=== PATIENT | female | born 1995 | race Caucasian/White ===

== ENCOUNTER 2021-06-04 09:53 | Day surgery (SDC) | payer OTHER ==
[~2021-06-04] VITALS: Ht 162.6 cm; Wt 111.4 kg
[2021-06-04] VITALS (11 sets, daily range): BP systolic 93–123; BP diastolic 58–78
[2021-06-04] MEDS ORDERED: SEVOFLURANE (ULTANE) 15 ML INHAL SOLN ONE ×2 (10:10→12:09)
[2021-06-04] MEDS ORDERED: proPOfol 200 MG/20 ML (DIPRIVAN) VIAL IV ONE (10:10)
[2021-06-04] MEDS ORDERED: LIDOCAINE PF 2% 5 ML (XYLOCAINE) VIAL ONE (10:10)
[2021-06-04] MEDS ORDERED: fentaNYL INJ 100 MCG/2 ML AMP ONE (10:10)
[2021-06-04] MEDS ORDERED: ONDANSETRON 4 MG/2 ML (SDV) Z0FRAN ONE (10:10)
[2021-06-04] MEDS ORDERED: MIDAZOLAM 2 MG/2 ML (VERSED) VIAL ONE (10:11)
[2021-06-04] MEDS ORDERED: ceFAZolin INJECTION 1,000 MG VIAL IV ONE (10:30)
[2021-06-04] MEDS: LACTATED RINGERS 1,000 ML IV PRN ×2 (10:48→12:19)
[2021-06-04 10:49] LABS: BASOPHILS % (AUTO) 0 % (0-10); EOSINOPHILS # (AUTO) 0.1 10^3/uL (0.0-0.3); EOSINOPHILS % (AUTO) 1 % (0-10); HEMATOCRIT 34 % (35-52); HEMOGLOBIN 11.7 g/dL (11.5-16.0); LYMPHOCYTES # (AUTO) 1.7 10^3/uL (1.0-4.0); LYMPHOCYTES % (AUTO) 17 % (12-44); MEAN CORPUSCULAR HEMOGLOBIN 33 pg (25-34); MEAN CORPUSCULAR HGB CONC 35 g/dL (32-36); MEAN CORPUSCULAR VOLUME 94 fL (80-99); MEAN PLATELET VOLUME 8.7 fL (9.0-12.2); MONOCYTES # (AUTO) 0.8 10^3/uL (0.0-1.0); MONOCYTES % (AUTO) 8 % (0-12); NEUTROPHILS # (AUTO) 7.7 10^3/uL (1.8-7.8); NEUTROPHILS % (AUTO) 73 % (42-75); PLATELET COUNT 190 10^3/uL (130-400); WHITE BLOOD COUNT 10.5 10^3/uL (4.3-11.0)
[2021-06-04] MEDS ORDERED: CETI10TA49 PO (10:55)
[2021-06-04] MEDS ORDERED: PREN-142 PO (10:55)
--- NOTE | 2021-06-04 11:35 | Progress Note-Pre Operative ---
Pre-Operative Progress Note H&P Reviewed The H&P was reviewed, patient examined and no changes noted. Date Seen by Provider: Jun 04, 2021 Time Seen by Provider: 11:35 Date H&P Reviewed: Jun 04, 2021 Time H&P Reviewed: 11:35 Pre-Operative Diagnosis: 15-week demise/missed JIL BURKETT MD Jun 04, 2021 11:35
--- NOTE | 2021-06-04 11:36 | Progress Note-Post Operative ---
Post-Operative Progess Note Surgeon (s)/Laborer Adjustable Steel Joist (s) Surgeon JIL BURKETT MD Laborer Adjustable Steel Joist: None Pre-Operative Diagnosis 15-week demise/missed Post-Operative Diagnosis Same Procedure & Operative Findings Date of Procedure 06/04/21 Procedure Performed/Findings D&C for missed at 15 weeks Anesthesia Type GEN Estimated Blood Loss Estimated blood loss (mL): 1000cc Specimens/Packing Specimens Removed Products of conception/uterine contents JIL BURKETT MD Jun 04, 2021 11:36
[2021-06-04] MEDS ORDERED: IBUP-1780 PO (11:38)
[2021-06-04] MEDS ORDERED: OXYC1TAB87 PO (11:38)
--- NOTE | 2021-06-04 12:07 | Discharge Inst-Surgical ---
Discharge Inst-Surgical Depart Medication/Instructions New, Converted or Re-Newed RX: Call to Patients Pharmacy Consults/Follow Up Patient Instructions: As directed Orders & Referrals Follow Up Appt: Call to make follow up appt. for patient in 2 weeks. Activity: Rest for 24 hours, than as tolerated. Please call in RX to patient pharmacy.Motrin only patient does not need Percocet Diet: As tolerated-Clear Liquids only if nauseated. Tomorrow, may shower or tub bathe as desired. No driving for 24 hours, no alcoholic beverages for 24 hours, and nothing per vagina (no tampons, douching, or intercoarse) for 2 weeks. Patient to return to the clinic as soon as possible for: Temperature greater than 101F, Severe Pain, Foul discharge from incision or vagina, Excessive Bleeding (more than a period). Activity Activity as Tolerated: Yes (As directed) Diet Discharge Diet: No Restrictions JIL BURKETT MD Jun 04, 2021 12:06
[2021-06-04] MEDS ORDERED: KETOROLAC 30 MG/ML VIAL ONE (12:08)
[2021-06-04] MEDS ORDERED: morphine INJ 10 MG/ML 1ML (SYR OR VIAL) ONE (12:23)
[2021-06-04] MEDS ORDERED: HYDROmorphone 2 MG/ML VIAL (DILAUDID) IV ONE (12:30)
[2021-06-04] MEDS ORDERED: morphine INJ 10 MG/ML 1ML (SYR OR VIAL) IVP ONE (12:30)
[2021-06-04] MEDS ORDERED: ONDANSETRON 4 MG/2 ML (SDV) Z0FRAN IVP PRN (12:30)
[2021-06-04] MEDS ORDERED: MEPERIDINE (DEMEROL) INJ 50 MG/ML IVP ONE (12:30)
--- NOTE | 2021-06-04 13:11 | Diagnostic Imaging Report ---
INDICATION: demise. FINDINGS: Imaging was performed after the patient underwent a D&C. There is some echogenicity to the endometrium, likely representing some air from the recent procedure. No definite evidence of retained products of conception is seen. IMPRESSION: Probable endometrial air. No other abnormality is seen. Dictated by: Dictated on workstation # [id number]
--- NOTE | 2021-06-04 14:11 | Anesthesia-General Post-Op ---
General Patient Condition Mental Status/LOC: Same as Preop Cardiovascular: Satisfactory Nausea/Vomiting: Absent Respiratory: Satisfactory Pain: Controlled Complications: Absent Post Op Complications Complications None Follow Up Care/Instructions Patient Instructions None needed. Anesthesia/Patient Condition Patient Condition Patient is doing well, no complaints, stable vital signs, no apparent adverse anesthesia problems. No complications reported per nursing. DAISY LEOS CRNA Jun 04, 2021 14:11
[2021-06-04] MEDS ORDERED: ONDANSETRON 4 MG (ZOFRAN) ORAL DISSOLVE TAB PO STA (14:31)
--- NOTE | 2021-06-04 17:35 | OPERATIVE REPORT ---
DATE OF SERVICE: 06/04/2021 PREOPERATIVE DIAGNOSIS: A 15-week demise/missed . POSTOPERATIVE DIAGNOSIS: A 15-week demise/missed . OPERATIVE PROCEDURE: D and C for second trimester, missed . OPERATIVE DESCRIPTION: With the patient in supine position under satisfactory general anesthesia, she was repositioned in dorsal lithotomy position in the [facility] and prepped and draped in the usual fashion for vaginal surgery. Urinary bladder was drained with a red Bhavik Genet catheter. A weighted speculum placed in posterior fornix of vagina. Cervix was grasped anteriorly and posteriorly with tenacula and then the cervix was sounded to 12.5 cm. The cervix was then serially dilated with Shadi dilators to a #20 Shadi and then using Hegar dilators, the dilation was carried to a #16 Hegar. This allowed for use of a 16-Polish curved suction curette, which was used to remove a large amount of trophoblastic and decidual ovarian tissue as well as obvious parts and debris. The uterine cavity was sharply curettaged after removal of the bulk of the tissue and then suction curette was used to remove the balance of the tissue with all blood clot and debris and products of conception evacuated. An ultrasound was performed to ensure the uterine cavity was empty, which was what was demonstrated with the ultrasound on transabdominal scan. With that, the procedure was complete. The operative instruments were removed under direct vision. The tenaculum was removed from the cervix. There was some bleeding from one of the puncture sites. This was treated with silver nitrate to effect hemostasis. With hemostasis assured, sponge and needle counts correct and blood loss 950 mL. The procedure was complete and terminated. The patient was uneventfully awakened from her general anesthesia and transferred to recovery room in stable condition with plans for discharge home PAR. Job ID: [id number] DocumentID: [id number] Dictated Date: 06/04/2021 13:02:08 Ecmo Specialist Date: 06/04/2021 17:34:42 Dictated By: JIL BURKETT MD
== END 2021-06-04 14:53 | disposition home or self-care (01) ==
LOC: SDC 09:53
PROVIDERS: ATTEND Obstetrics & Gynecology
DX: O02.1 Missed abortion (principal); E66.01 Morbid (severe) obesity due to excess calories; Z68.41 Body mass index [BMI] 40.0-44.9, adult
CPT/HCPCS: 36415; 76815; 85025; 87081

== ENCOUNTER → 2021-06-20 | Outpatient (CLI) | payer OTHER ==
[~2021-06-20] MED LIST: CETI10TA49 PO; IBUP-1780 PO; OXYC1TAB87 PO; PREN-142 PO
== END ==
LOC: LABNPT 12:07
PROVIDERS: ATTEND Obstetrics & Gynecology
DX: Z09 Encounter for follow-up examination after completed treatment for conditions other than malignant neoplasm (principal)
CPT/HCPCS: 84702

== ENCOUNTER → 2021-06-26 | Outpatient (CLI) | payer OTHER | LOC: LABNPT 13:30 | PROVIDERS: ATTEND Obstetrics & Gynecology | DX: O02.1 Missed abortion (principal) | CPT/HCPCS: 84702 ==

== ENCOUNTER → 2021-10-14 | Outpatient (CLI) | payer OTHER ==
[2021-10-14 08:04] LABS: ALBUMIN 4.1 GM/DL (3.2-4.5)
[2021-10-14 08:05] LABS: CALCIUM 9.2 MG/DL (8.5-10.1)
[2021-10-14 08:07] LABS: TOTAL PROTEIN 7.4 GM/DL (6.4-8.2)
[2021-10-14 08:09] LABS: BILIRUBIN,TOTAL 0.4 MG/DL (0.1-1.0)
[2021-10-14 08:11] LABS: CREATININE SERUM 0.87 MG/DL (0.60-1.30)
[2021-10-14 08:35] LABS: FREE T4 (FREE THYROXINE) 0.84 NG/DL (0.70-1.48)
== END ==
LOC: LAB 07:26
PROVIDERS: ATTEND Family Medicine
DX: Z00.00 Encounter for general adult medical examination without abnormal findings (principal); O03.9 Complete or unspecified spontaneous abortion without complication; E28.2 Polycystic ovarian syndrome
CPT/HCPCS: 36415; 80053; 80061; 83036; 83525; 84439; 84443

== ENCOUNTER → 2022-04-04 | Outpatient (CLI) | payer OTHER ==
--- NOTE | 2022-04-04 17:01 | Diagnostic Imaging Report ---
INDICATION: anatomy survey. TECHNIQUE: Multiple real-time grayscale images were obtained over the gravid uterus. COMPARISON: None Findings: there is a single live intrauterine in the cephalic position. The placenta is posterior in location, and there is no evidence of previa or placental abruption. The TONY measures 12.35 cm. Cervix measures approximately 5.1 cm. anatomy survey was performed and the following structures are visualized and normal: Kidneys, umbilical cord insertion, four-chamber heart, urinary bladder, three-vessel cord, spine, left ventricular outflow tract, diaphragm, right ventricular outflow tract, cerebral ventricles, cisterna magna and cerebellum. Due to advanced gestational age, the maternal adnexa are suboptimally evaluated. Biometrical measurements are as follows: Biparietal 5.07 cm, age 21 weeks 3 days. Head circumference 19.56 cm, age 21 weeks 6 days. Abdominal circumference 15.85 cm, age 21 weeks 0 days. Femur length 3.76 cm, age 22 weeks 1 days. Sonographic estimate age: 21 weeks 5 days. Sonographic estimated date of delivery: 08/10/2022. Estimated Weight: 427 gm (+/- 63 gm). LMP percentile: 71%. heart rate: 135 beats per minute. number: 1 of 1. IMPRESSION: 1. Single live intrauterine with normal anatomy survey. Dictated by: Dictated on workstation # [id number]
== END ==
LOC: RAD 12:00
PROVIDERS: ATTEND Obstetrics & Gynecology
DX: Z34.82 Encounter for supervision of other normal pregnancy, second trimester (principal); Z3A.21 21 weeks gestation of pregnancy
CPT/HCPCS: 76805

== ENCOUNTER 2022-08-07 11:55 | Inpatient (IN) | payer OTHER ==
[2022-08-07] VITALS (40 sets, daily range): BP systolic 93–134; BP diastolic 53–83
[~2022-08-07] VITALS: Ht 162.6 cm; Wt 116.2 kg
[2022-08-07] MEDS ORDERED: D5 LR IV SOLUTION 1,000 ML IV SCH (12:45)
[2022-08-07] MEDS ORDERED: MINERAL OIL 30 ML UDC TOP PRN (12:45)
[2022-08-07 12:49] LABS: BILIRUBIN,URINE NEGATIVE (NEGATIVE); CLARITY,URINE CLOUDY; COLOR,URINE YELLOW; GLUCOSE, URINE (UA) NEGATIVE (NEGATIVE); KETONES,URINE 1+ (NEGATIVE); LEUKOCYTE ESTERASE ,URINE 2+ (NEGATIVE); NITRITE,URINE NEGATIVE (NEGATIVE); PROTEIN,URINE 2+ (NEGATIVE)
--- NOTE | 2022-08-07 12:56 | History & Physical-OB ---
OB - Chief Complaint & HPI Date/Time Date of Admission: Date of Admission: Aug 07, 2022 at 12:26 Date seen by a Provider: Aug 07, 2022 Time Seen by a Provider: 12:45 Chief Complaint/History OB-Reason for Admission/Chief: Rupture of Membranes (1100 today ) Hx : 3 Hx Para: 0 Expected Date of Delivery: Aug 15, 2022 Gestational Age in Weeks: 38 Gestational Age in Days: 6 Admission Nurse Assessment Rev: Yes Allergies and Home Medications Allergies Coded Allergies: No Known Drug Allergies (Unverified , 06/04/21) Patient Home Medication List Home Medication List Reviewed: Yes Cetirizine HCl (Zyrtec) 10 Mg Tablet, 10 MG PO DAILY, (Reported) Entered as Reported by: ROME BAXTER on 06/04/21 105 Last Action: Reviewed Ibuprofen (Ibuprofen) 800 Mg Tablet, 800 MG PO Q6H PRN for PAIN Prescribed by: JIL TORIBIO on 06/04/21 1138 Last Action: Held Vit No.124/Iron/FA ( Vitamin Tablet) 1 Each Tablet, 1 EACH PO DAILY, (Reported) Entered as Reported by: ROME BAXTER on 06/04/21 105 Last Action: Reviewed OB - History Hx of Present Care: Yes Ultrasounds: Normal mid trimester US Obstetrical Complications: None Medical Complications: None Information Induced Hypertension: No Maternal Gestational Diabetes: No Hemorrhage: No Obstetrical History Hx : 3 Hx Para: 0 Hx # Term Pregnancies: 0 Hx # Pregnancies: 0 Number of Living Children: 0 Hx Total # of Abortions (Spona: 2 Patient Past Medical History none Social History/Family History Alcohol Use: Denies Use Smoking Cessation: Never smoker 2nd Hand Smoke Exposure: No Immunizations Influenza Vaccine Up-to-Date: Yes; Up-to-Date First/Initial COVID19 Vaccine: MARCH 2020 Second COVID19 Vaccination: APRIL 2020 Tetanus Booster (TDap): Less than 5yrs Rubella: immune RPR/VDRL: Negative GBS Status: Negative HBsAG: Negative OB - Admission Exam Physical Exam HEENT: NCAT Heart: Rhythm Normal Lungs: Clear Abdomen: Gravid Extremities: Normal Reflexes: Normal Cervical Dilatation: 3cm Effacement: 50% Station: -3 Membranes: Ruptured Amniotic Fluid: Other (blood toinged) Accelerations: Accelerations Present Decelerations: No Decelerations Short Term Variability: Present Solar Pool Heating Installer Variability: Average (6-25) Contractions on Admission: 6-10 Minutes Apart Intensity: Moderate Labs Laboratory Tests Test 08/07/22 12:23 Range/Units OB - Assessment/Plan/Diagnosis Assessment Assessment: active labor, rupture of membranes Admission Dx IUP @ 38w6d SROM Admission Status: Inpatient Order (span 2 midnights) Reason for Inpatient Admission: IUP @ 38w6d SROM Active labor Plan Plan: Expectant Management Copy Copies To 1: JERSON HERNANDEZ VICTORIA A DO Aug 07, 2022 12:56
[2022-08-07 13:03] LABS: BACTERIA,URINE LARGE /HPF; RBC,URINE 50-100 /HPF
[2022-08-07 13:03] LABS: BASOPHILS # (AUTO) 0.1 10^3/uL (0.0-0.1); BASOPHILS % (AUTO) 1 % (0-10); EOSINOPHILS # (AUTO) 0.3 10^3/uL (0.0-0.3); EOSINOPHILS % (AUTO) 2 % (0-10); HEMATOCRIT 37 % (35-52); HEMOGLOBIN 12.5 g/dL (11.5-16.0); LYMPHOCYTES # (AUTO) 1.8 10^3/uL (1.0-4.0); LYMPHOCYTES % (AUTO) 12 % (12-44); MEAN CORPUSCULAR HEMOGLOBIN 32 pg (25-34); MEAN CORPUSCULAR HGB CONC 34 g/dL (32-36); MEAN CORPUSCULAR VOLUME 95 fL (80-99); MEAN PLATELET VOLUME 9.2 fL (9.0-12.2); MONOCYTES # (AUTO) 1.1 10^3/uL (0.0-1.0); MONOCYTES % (AUTO) 7 % (0-12); NEUTROPHILS # (AUTO) 11.9 10^3/uL (1.8-7.8); NEUTROPHILS % (AUTO) 78 % (42-75); PLATELET COUNT 209 10^3/uL (130-400); WHITE BLOOD COUNT 15.3 10^3/uL (4.3-11.0)
[2022-08-07 13:51] LABS: BAND NEUTROPHILS 2 %; EOSINOPHILS % (MANUAL) 1 %; LYMPHOCYTES % (MANUAL) 15 %; MONOCYTES % (MANUAL) 7 %; NEUTROPHILS % (MANUAL) 75 %; RBC MORPH NORMAL
[2022-08-07] MEDS ORDERED: LACTATED RINGERS 1,000 ML IV ONE (14:00)
[2022-08-07] MEDS ORDERED: fentaNYL 2 mcg/ml BUPIVA 0.125 100 ML ONE (14:00)
[2022-08-07] MEDS ORDERED: diphenhydrAMINE 50 MG/ML INJ (BENADRYL) IV PRN (14:30)
[2022-08-07] MEDS ORDERED: LACTATED RINGERS 1,000 ML IV SCH (14:30)
[2022-08-07] MEDS ORDERED: NALOXONE 0.4 MG/ML 1 ML (NARCAN) VIAL IV PRN ×3 (14:30→20:00)
[2022-08-07] MEDS ORDERED: METOCLOPRAMIDE INJ 10 MG/2 ML (REGLAN) IV PRN (14:30)
[2022-08-07] MEDS ORDERED: ONDANSETRON 4 MG/2 ML (SDV) Z0FRAN IV PRN (14:30)
[2022-08-07] MEDS ORDERED: fentaNYL 2 mcg/ml BUPIVA 0.125 100 ML EPI SCH (14:30)
[2022-08-07] MEDS ORDERED: OXYTOCIN PRE-MIX DRIP 500 ML IV ONE ×2 (14:55→19:55)
[2022-08-07] MEDS ORDERED: LIDOCAINE 1% INJ 10 ML VIAL ONE (15:07)
[2022-08-07] MEDS ORDERED: IBUP-1780 PO (19:52)
--- NOTE | 2022-08-07 19:54 | Discharge Summary ---
Discharge Summary Hospital Course Problems Reviewed?: Yes Hospital Course Date of Admission: Aug 07, 2022 at 12:26 Admission Diagnosis : Family Physician/Provider: Date of Discharge: 08/07/22 Discharge Diagnosis: s/p vaginal delivery Hospital Course: Patient delivered via vaginal delivery did very well and was discharged to home on day #1 Labs and Pending Lab Test: Laboratory Tests 08/07/22 12:23: Urine Color YELLOW, Urine Clarity CLOUDY, Urine pH 6.0, Urine Specific [place] >=1.030, Urine Protein 2+H, Urine Glucose (UA) NEGATIVE, Urine Ketones 1+H, Urine Nitrite NEGATIVE, Urine Bilirubin NEGATIVE, Urine Urobilinogen 0.2, Urine Leukocyte Esterase 2+H, Urine RBC (Auto) 3+H, Urine RBC 50-100H, Urine WBC 10- 25H, Urine Squamous Epithelial Cells 2-5, Urine Crystals NONE, Urine Bacteria LARGEH, Urine Casts NONE, Urine Mucus NEGATIVE, Urine Culture Indicated YES 08/07/22 12:53: White Blood Count 15.3H, Red Blood Count 3.87, Hemoglobin 12.5, Hematocrit 37, Mean Corpuscular Volume 95, Mean Corpuscular Hemoglobin 32, Mean Corpuscular Hemoglobin Concent 34, Red Cell Distribution Width 13.5, Platelet Count 209, Mean Platelet Volume 9.2, Immature Granulocyte % (Auto) 1, Neutrophils (%) (Auto) 78H, Lymphocytes (%) (Auto) 12, Monocytes (%) (Auto) 7, Eosinophils (%) (Auto) 2, Basophils (%) (Auto) 1, Neutrophils # (Auto) 11.9H, Lymphocytes # (Auto) 1.8, Monocytes # (Auto) 1.1H, Eosinophils # (Auto) 0.3, Basophils # (Auto) 0.1, Immature Granulocyte # (Auto) 0.2H, Neutrophils % (Manual) 75, Lymphocytes % (Manual) 15, Monocytes % (Manual) 7, Eosinophils % (Manual) 1, Band Neutrophils 2, Blood Morphology Comment NORMAL, Syphilis Total Antibody Negative Home Meds Active Ibuprofen 800 Mg Tablet 800 Mg PO Q6H PRN Reported Vitamin Tablet ( Vit No.124/Iron/FA) 1 Each Tablet 1 Each PO DAILY Zyrtec (Cetirizine HCl) 10 Mg Tablet 10 Mg PO DAILY Discharge Diet: Regular Diet Symptoms to Report to : Pain Increased, Fever Over 101 Degrees F, Vaginal Bleeding Increase For Any Problems or Questions: Contact Your Physician Discharge Physical Examination Allergies: Coded Allergies: No Known Drug Allergies (Unverified , 06/04/21) Vitals & I&Os Vital Signs Date Time Temp Pulse Resp B/P (MAP) Pulse Ox O2 Delivery O2 Flow Rate FiO2 08/07/22 15:35 91 18 122/75 (91) Room Air 08/07/22 14:46 100 08/07/22 14:15 36.6 Discharge Summary Date of Admission Aug 07, 2022 at 12:26 Date of Discharge Supervisory-Addendum Brief Verification & Attestation Participated in pt care: history, MDM, physical Personally performed: exam, history, MDM, supervision of care Care discussed with: other (NA) Procedures: n/a Results interpretation: Verified all documentation I personally saw & examined this pt CAMDEN SANTIAGO DO Aug 07, 2022 19:54
--- NOTE | 2022-08-07 19:57 | OB Labor & Delivery Record ---
Vag Delivery Note Vag Delivery Note Date of Delivery: 08/07/22 Preoperative Diagnosis: Shane Dyson is a (27 /Para 3 / 0, Gestational Age (wks)38w6d with [ ] Postoperative Diagnosis: Same Surgeon: CAMDEN SANTIAGO Out Patient Therapist: [] Anesthesia: Epidural Delivery Type:Spontaneous vaginal delivery Findings: [] Liveborn male infant, apgars9/9 weight 2740 g 6 pounds 1 ounce Lacerations: First-degree perineal laceration Right labial Intact placenta with 3 vessel cord. No nuchal cord, body cord or shoulder dystocia Estimated Blood Loss:200 ml Complications: None Condition: Stable Description of Procedure: The patient is a 27 year old female who presented at 38 weeks 6 days with spontaneous rupture of membranes and contractions. She was admitted and informed consent was obtained. Her labor course was uneventful. She progressed to complete dilatation and began to push. The patient pushed for approximately 10 minutes to deliver the head in an MICAH position. The mouth and nose were bulb suction. There is noted to be thick meconium. The anterior shoulder (left) delivered followed by the posterior shoulder followed by the rest the . The was placed on the maternal abdomen and after 60 seconds the cord was clamped and then cut. Cord bloods were obtained. The placenta delivered spontaneously intact with three- vessel cord.The cervix, vagina, para refill perineal areas were all inspected there was a first-degree perineal laceration and right labial laceration which was repaired with 3-0 Rapide. Quantitative blood loss was 200 cc. The uterus was firm and below the umbilicus. The mother and tolerated the procedure well and recovering in the room in stable condition. All sponge, instrument and needle counts were correct x2. Vitals - Labs Vital Signs - I&O Vital Signs Date Time Temp Pulse Resp B/P (MAP) Pulse Ox O2 Delivery O2 Flow Rate FiO2 08/07/22 15:35 91 18 122/75 (91) Room Air 08/07/22 15:30 81 18 123/70 (87) Room Air 08/07/22 15:25 86 18 117/76 (90) Room Air 08/07/22 15:20 86 18 117/68 (84) Room Air 08/07/22 15:15 91 18 115/70 (85) Room Air 08/07/22 15:10 86 18 123/77 (92) Room Air 08/07/22 15:05 86 18 117/66 (83) Room Air 08/07/22 15:00 81 18 105/62 (76) Room Air 08/07/22 14:55 85 18 105/62 (76) Room Air 08/07/22 14:46 91 18 126/78 (94) 100 Room Air 08/07/22 14:45 96 18 114/72 (86) 100 Room Air 08/07/22 14:40 105 18 121/80 (94) 99 Room Air 08/07/22 14:30 93 18 114/72 (86) 100 Room Air 08/07/22 14:25 88 18 119/56 (77) 99 Room Air 08/07/22 14:20 103 18 131/77 (95) 99 Room Air 08/07/22 14:15 36.6 85 18 134/71 (92) 98 Room Air 08/07/22 12:05 36.6 92 18 123/78 (93) 98 Room Air 08/07/22 12:00 36.6 92 18 98 Room Air Labs Laboratory Tests 08/07/22 12:23: Urine Color YELLOW, Urine Clarity CLOUDY, Urine pH 6.0, Urine Specific [place] >=1.030, Urine Protein 2+H, Urine Glucose (UA) NEGATIVE, Urine Ketones 1+H, Urine Nitrite NEGATIVE, Urine Bilirubin NEGATIVE, Urine Urobilinogen 0.2, Urine Leukocyte Esterase 2+H, Urine RBC (Auto) 3+H, Urine RBC 50-100H, Urine WBC 10- 25H, Urine Squamous Epithelial Cells 2-5, Urine Crystals NONE, Urine Bacteria LARGEH, Urine Casts NONE, Urine Mucus NEGATIVE, Urine Culture Indicated YES 08/07/22 12:53: White Blood Count 15.3H, Red Blood Count 3.87, Hemoglobin 12.5, Hematocrit 37, Mean Corpuscular Volume 95, Mean Corpuscular Hemoglobin 32, Mean Corpuscular Hemoglobin Concent 34, Red Cell Distribution Width 13.5, Platelet Count 209, Mean Platelet Volume 9.2, Immature Granulocyte % (Auto) 1, Neutrophils (%) (Auto) 78H, Lymphocytes (%) (Auto) 12, Monocytes (%) (Auto) 7, Eosinophils (%) (Auto) 2, Basophils (%) (Auto) 1, Neutrophils # (Auto) 11.9H, Lymphocytes # (Auto) 1.8, Monocytes # (Auto) 1.1H, Eosinophils # (Auto) 0.3, Basophils # (Auto) 0.1, Immature Granulocyte # (Auto) 0.2H, Neutrophils % (Manual) 75, Lymphocytes % (Manual) 15, Monocytes % (Manual) 7, Eosinophils % (Manual) 1, Band Neutrophils 2, Blood Morphology Comment NORMAL, Syphilis Total Antibody Negative CAMDEN SANTIAGO DO Aug 07, 2022 19:57
[2022-08-07] MEDS ORDERED: BENZOCAINE/MENTHOL (DERMOPLAST) 56 ML CAN TP PRN (20:00)
[2022-08-07] MEDS ORDERED: WITCH HAZEL(TUCKS) 40 EA JAR TOP PRN (20:00)
[2022-08-07] MEDS ORDERED: OXYTOCIN PRE-MIX DRIP 500 ML IV SCH ×2 (20:00→21:30)
[2022-08-07] MEDS ORDERED: DIBUCAINE 1% OINTMENT 28 GM TUBE TOP PRN (20:00)
[2022-08-07] MEDS ORDERED: TETANUS,DIPTH,PERTUSS P/F (BOOSTRIX) 0.5 ML VIAL IM ONE (20:00)
[2022-08-07] MEDS ORDERED: MEASLES,MUMPS,RUBELLA 1 EA INJ SQ ONE (20:00)
[2022-08-07] MEDS: IBUPROFEN 800 MG (MOTRIN) TAB PO SCH (21:37)
[2022-08-07] MEDS: ACETAMINOPHEN 500 MG TAB (TYLENOL) PO SCH (21:38)
[2022-08-07] MEDS ORDERED: CATHETER FLUSH 10 ML SYR IV SCH (22:00)
[2022-08-07] MEDS: DOCUSATE SODIUM 100 MG (COLACE) CAP PO SCH (23:56)
[2022-08-08 00:13] VITALS: BP 110/58
[2022-08-08] MEDS: ACETAMINOPHEN 500 MG TAB (TYLENOL) PO SCH ×3 (04:17→20:31)
[2022-08-08 04:18] VITALS: BP 104/68
[2022-08-08 05:37] LABS: BASOPHILS # (AUTO) 0.1 10^3/uL (0.0-0.1); BASOPHILS % (AUTO) 0 % (0-10); EOSINOPHILS # (AUTO) 0.2 10^3/uL (0.0-0.3); EOSINOPHILS % (AUTO) 1 % (0-10); HEMATOCRIT 30 % (35-52); HEMOGLOBIN 10.3 g/dL (11.5-16.0); LYMPHOCYTES # (AUTO) 2.1 10^3/uL (1.0-4.0); LYMPHOCYTES % (AUTO) 13 % (12-44); MEAN CORPUSCULAR HEMOGLOBIN 32 pg (25-34); MEAN CORPUSCULAR HGB CONC 34 g/dL (32-36); MEAN CORPUSCULAR VOLUME 95 fL (80-99); MEAN PLATELET VOLUME 9.2 fL (9.0-12.2); MONOCYTES # (AUTO) 1.6 10^3/uL (0.0-1.0); MONOCYTES % (AUTO) 10 % (0-12); NEUTROPHILS # (AUTO) 12.4 10^3/uL (1.8-7.8); NEUTROPHILS % (AUTO) 75 % (42-75); PLATELET COUNT 170 10^3/uL (130-400); WHITE BLOOD COUNT 16.5 10^3/uL (4.3-11.0)
[2022-08-08] MEDS: IBUPROFEN 800 MG (MOTRIN) TAB PO SCH ×3 (06:19→16:08)
[2022-08-08] MEDS ORDERED: PRENATAL VITAMIN 1 EA TAB PO SCH (07:00)
--- NOTE | 2022-08-08 07:33 | Postpartum Progress Note ---
Note Note Day # 1 Subjective: Patient is without complaints. Ambulating, voiding. Tolerating a regular diet without nausea or vomiting. Normal lochia. Pain is well controlled with oral pain medications. . [] Objective: [] Physical Exam: General - Alert and oriented, no apparent distress Breasts symmetrical no erythema edema or engorgement Abdomen - Soft, appropriately tender to palpation, non-distended, fundus firm at umbilicus Lochia minimal Extremities - no edema, negative Saida's bilaterally Assessment: [] post- day # 2, status post vaginal delivery. Recovering well, hemodynamically stable Plan: Routine care. Encourage breast feeding. Encourage ambulation. Ferrous sulfate supplementation. Plan for discharge [] Vitals - Labs Vital Signs - I&O Vital Signs Date Time Temp Pulse Resp B/P (MAP) Pulse Ox O2 Delivery O2 Flow Rate FiO2 08/08/22 04:18 36.0 96 18 104/68 (80) 84 Room Air 08/08/22 00:13 36.7 83 22 110/58 (75) 97 Room Air 08/07/22 21:47 90 100/59 (73) 08/07/22 21:47 92 95 08/07/22 21:36 36.5 99 22 93/60 (71) 96 Room Air 08/07/22 21:21 104 99/75 (83) Room Air 08/07/22 21:06 96 114/67 (83) Room Air 08/07/22 20:51 98 112/59 (76) Room Air 08/07/22 20:36 90 113/58 (76) Room Air 08/07/22 20:06 90 121/64 (83) Room Air 08/07/22 19:51 96 128/71 (90) Room Air 08/07/22 19:36 96 127/57 (80) Room Air 08/07/22 19:00 100 18 119/74 (89) Room Air 08/07/22 18:45 100 18 106/79 (88) Room Air 08/07/22 18:30 88 18 126/72 (90) Room Air 08/07/22 18:28 Room Air 08/07/22 18:15 18 124/68 (86) Non Rebreather 15.00 08/07/22 18:07 Non Rebreather 15.00 08/07/22 18:00 18 Room Air 08/07/22 17:55 37.2 08/07/22 17:45 83 18 94/53 (67) Room Air 08/07/22 17:30 95 18 119/72 (88) Room Air 08/07/22 17:15 93 18 131/83 (99) Room Air 08/07/22 17:00 95 18 129/64 (85) Room Air 08/07/22 16:45 99 18 129/79 (96) Room Air 08/07/22 16:30 99 18 129/79 (96) Room Air 08/07/22 16:15 85 18 122/75 (91) Room Air 08/07/22 16:00 87 18 104/58 (73) Room Air 08/07/22 15:45 80 18 117/73 (88) Room Air 08/07/22 15:35 91 18 122/75 (91) Room Air 08/07/22 15:30 81 18 123/70 (87) Room Air 08/07/22 15:25 86 18 117/76 (90) Room Air 08/07/22 15:20 86 18 117/68 (84) Room Air 08/07/22 15:15 91 18 115/70 (85) Room Air 08/07/22 15:10 86 18 123/77 (92) Room Air 08/07/22 15:05 86 18 117/66 (83) Room Air 08/07/22 15:00 81 18 105/62 (76) Room Air 08/07/22 14:55 85 18 105/62 (76) Room Air 08/07/22 14:46 91 18 126/78 (94) 100 Room Air 08/07/22 14:45 96 18 114/72 (86) 100 Room Air 08/07/22 14:40 105 18 121/80 (94) 99 Room Air 08/07/22 14:30 93 18 114/72 (86) 100 Room Air 08/07/22 14:25 88 18 119/56 (77) 99 Room Air 08/07/22 14:20 103 18 131/77 (95) 99 Room Air 08/07/22 14:15 36.6 85 18 134/71 (92) 98 Room Air 08/07/22 12:05 36.6 92 18 123/78 (93) 98 Room Air 08/07/22 12:00 36.6 92 18 98 Room Air I & O 08/08/22 07:00 Intake Total 2875 ml Balance 2875 ml Labs Laboratory Tests 08/07/22 12:23: Urine Color YELLOW, Urine Clarity CLOUDY, Urine pH 6.0, Urine Specific [place] >=1.030, Urine Protein 2+H, Urine Glucose (UA) NEGATIVE, Urine Ketones 1+H, Urine Nitrite NEGATIVE, Urine Bilirubin NEGATIVE, Urine Urobilinogen 0.2, Urine Leukocyte Esterase 2+H, Urine RBC (Auto) 3+H, Urine RBC 50-100H, Urine WBC 10- 25H, Urine Squamous Epithelial Cells 2-5, Urine Crystals NONE, Urine Bacteria LARGEH, Urine Casts NONE, Urine Mucus NEGATIVE, Urine Culture Indicated YES 08/07/22 12:53: White Blood Count 15.3H, Red Blood Count 3.87, Hemoglobin 12.5, Hematocrit 37, Mean Corpuscular Volume 95, Mean Corpuscular Hemoglobin 32, Mean Corpuscular Hemoglobin Concent 34, Red Cell Distribution Width 13.5, Platelet Count 209, Mean Platelet Volume 9.2, Immature Granulocyte % (Auto) 1, Neutrophils (%) (Auto) 78H, Lymphocytes (%) (Auto) 12, Monocytes (%) (Auto) 7, Eosinophils (%) (Auto) 2, Basophils (%) (Auto) 1, Neutrophils # (Auto) 11.9H, Lymphocytes # (Aut o) 1.8, Monocytes # (Auto) 1.1H, Eosinophils # (Auto) 0.3, Basophils # (Auto) 0.1, Immature Granulocyte # (Auto) 0.2H, Neutrophils % (Manual) 75, Lymphocytes % (Manual) 15, Monocytes % (Manual) 7, Eosinophils % (Manual) 1, Band Neutrophils 2, Blood Morphology Comment NORMAL, Syphilis Total Antibody Negative 08/08/22 05:25: White Blood Count 16.5H, Red Blood Count 3.18L, Hemoglobin 10.3L, Hematocrit 30L , Mean Corpuscular Volume 95, Mean Corpuscular Hemoglobin 32, Mean Corpuscular Hemoglobin Concent 34, Red Cell Distribution Width 13.4, Platelet Count 170, Mean Platelet Volume 9.2, Immature Granulocyte % (Auto) 1, Neutrophils (%) (Auto) 75, Lymphocytes (%) (Auto) 13, Monocytes (%) (Auto) 10, Eosinophils (%) (Auto) 1, Basophils (%) (Auto) 0, Neutrophils # (Auto) 12.4H, Lymphocytes # (Auto) 2.1, Monocytes # (Auto) 1.6H, Eosinophils # (Auto) 0.2, Basophils # (Auto) 0.1, Immature Granulocyte # (Auto) 0.1 CAMDEN SANTIAGO DO Aug 08, 2022 07:33
--- NOTE | 2022-08-08 07:40 | Anesthesia-Regional Post-Op ---
Regional Patient Condition Mental Status: Alert, Oriented x3 Circulation: Same as Pre-Op Headache: Absent Sensation: Full Recovery Motor Block: Absent Post Op Complications Complications None Follow Up Care/Instructions Patient Instructions None needed. Anesthesia/Patient Condition Patient is doing well, no complaints, stable vital signs, no apparent adverse anesthesia problems. No complications reported per nursing. DERIK FERNANDEZ CRNA Aug 08, 2022 07:40
[2022-08-08 08:10] VITALS: BP 93/55
[2022-08-08] MEDS: DOCUSATE SODIUM 100 MG (COLACE) CAP PO SCH ×2 (08:13→20:31)
[2022-08-08] MEDS ORDERED: FERROUS SULF 325 MG (IRON) TAB PO SCH (09:00)
[2022-08-08 14:57] VITALS: BP 109/64
[2022-08-08 20:33] VITALS: BP 119/67
== END 2022-08-08 21:54 | disposition home or self-care (01) | DRG 807 ==
LOC: WSo 11:55 → LDRP 11:55 → WSo 12:25 → LDRP 12:26
PROVIDERS: ADMIT Obstetrics & Gynecology; ATTEND Obstetrics & Gynecology
PROC: 10E0XZZ Delivery of Products of Conception, External Approach (ICD-10-PCS; principal; 2022-08-07)
PROC: 0HQ9XZZ Repair Perineum Skin, External Approach (ICD-10-PCS; 2022-08-07)
DX: O70.0 First degree perineal laceration during delivery (principal); Z37.0 Single live birth; Z3A.39 39 weeks gestation of pregnancy
CPT/HCPCS: 36415; 81000; 85007; 85025; 85027; 86780; 86850; 86900; 86901; 87088